=== PATIENT | female | born 1965 | race Caucasian/White ===

== ENCOUNTER 2025-03-20 07:40 | Emergency (ER) | payer OTHER ==
[~2025-03-20] VITALS: Ht 162.6 cm; Wt 86.0 kg
[2025-03-20 08:16] VITALS: BP 156/92; PULSE 89; RESP 17; O2SAT 97
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
[2025-03-20] MEDS: ACETAMINOPHEN 500 MG TAB or CAP PO ONE (09:33)
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
[2025-03-20 10:33] VITALS: TEMP 97.9
== END 2025-03-20 10:45 | disposition home or self-care (01) ==
LOC: ER 07:40
DX: S42.202A Unspecified fracture of upper end of left humerus, initial encounter for closed fracture (principal); S53.402A Unspecified sprain of left elbow, initial encounter; S60.222A Contusion of left hand, initial encounter; V89.2XXA Person injured in unspecified motor-vehicle accident, traffic, initial encounter; Y93.89 Activity, other specified; Y92.89 Other specified places as the place of occurrence of the external cause; Y99.8 Other external cause status
CPT/HCPCS: 73060; 73080; 73110; 73130